=== PATIENT | male | born 1970 | race Caucasian/White ===

== ENCOUNTER 2020-03-25 10:53 | Outpatient (CLI) | payer BC, SELFPAY ==
--- NOTE | ~2020-03-25 | XR_ITS ---
EXAMINATION: XR lg joint inject/asp w image DATE: 03/25/2020 11:45 INDICATION: Frozen left shoulder. TECHNIQUE: A time-out was performed to verify the patient's name, date of , and procedure to b e performed. The procedure including the risks, benefits, and alternatives was discussed with the pat ient. Risks discussed included bleeding and infection. The patient understood the risks and agreed to proceed. The skin overlying the left glenohumeral joint was prepped and draped in usual sterile fas hion. Anesthetic was administered with 1% lidocaine subcutaneously. A 22 G needle was advanced unde r fluoroscopic guidance into the joint. Injection of 1 mL of Omnipaque 240 confirmed intra-articular position of the needle. Subsequently, injectate consisting of 4 mL 1% lidocaine and 1 mL 80 mg/mL D epo-Medrol was instilled. The needle was removed and the entry site was cleaned and dressed. There were no immediate complications. Fluoroscopy exposure time was 0.1 minutes. The total number of image s was 2. FINDINGS: Real-time fluoroscopy demonstrates the needle in the left glenohumeral joint. Patient's sean n prior to procedure:1/10. Patient's pain following the procedure: 0/10. IMPRESSION: 1. Fluoroscopy guided left glenohumeral joint injection of local anesthetic and steroid with decrease in the patient's presenting pain. Reviewed, dictated and finalized at location A. RTAINMENT MANAGER
== END 2020-03-25 10:54 | disposition home or self-care (01) ==
PROVIDERS: PCP Family Medicine; Visit Provider Orthopaedic Surgery
DX: M75.02 Adhesive capsulitis of left shoulder (principal)
CPT/HCPCS: 20610; 77002; J1040; Q9966

== ENCOUNTER 2024-10-30 11:06 | Outpatient (CLI) | payer BC, SELFPAY ==
--- NOTE | ~2024-10-30 | MM_ITS ---
EXAMINATION: MM screening carissa BI w esau HISTORY: Screening TECHNIQUE: Craniocaudal and mediolateral oblique 3-D tomosynthesis images were obtained and synthetic 2-D images were generated. CAD analysis was submitted and interpreted. COMPARISON: Baseline. BREAST PARENCHYMAL COMPOSITION: The breasts are heterogeneously dense, which may obscure small masses . FINDINGS: There is no evidence of suspicious mass, calcification, or architectural distortion to sug gest malignancy in either breast. IMPRESSION: 1. No mammographic evidence of malignancy. 2. Recommend routine screening mammography in one year. BI-RADS Category 1: Negative Reviewed, dictated and finalized at location B.
== END 2024-10-30 11:07 | disposition home or self-care (01) ==
PROVIDERS: PCP Family Medicine; Visit Provider Family Medicine
DX: Z12.31 Encounter for screening mammogram for malignant neoplasm of breast (principal)
CPT/HCPCS: 77063; 77067